=== PATIENT | female | born 1970 | race Hispanic/Latino ===

== ENCOUNTER 2019-10-09 06:58 | Day surgery (SDC) | payer BC ==
[~2019-10-09 06:58] MED LIST: BUDE10.22 IH; FLUT1AER IH; HYOS-27 SL; LINA145C PO; LOSA25TA41 PO; MAG OX PO; MILK175T PO; MONT10TA24 PO; OMEGA 3; OMEP40CA13 PO; SODIUM CHLORIDE 0.9% 1000ML 1,000 ML IV ONE; VITAMIN D2
[2019-10-09 08:50] VITALS: BP 120/75
[2019-10-09 09:01] LABS: BASOPHILS % (AUTO) 0.4 % (0.0-5.0); EOSINOPHILS % (AUTO) 2.7 % (0.0-8.0); HEMATOCRIT 42.2 % (36-48); LYMPHOCYTES % (AUTO) 26.6 % (21.0-51.0); MEAN CORPUSCULAR HEMOGLOBIN 29.2 pg (27.0-33.0); MEAN CORPUSCULAR HGB CONC 33.2 g/dL (32.0-36.0); MEAN CORPUSCULAR VOLUME 87.9 fL (79-99); MONOCYTES % (AUTO) 6.3 % (3.0-13.0); NEUTROPHILS % (AUTO) 63.8 % (40.0-77.0); PLATELET COUNT (AUTO) 192 K/uL (130-400); WHITE BLOOD COUNT (AUTO) 4.9 K/uL (4.8-10.8)
[2019-10-09 09:14] LABS: PROTHROMBIN TIME 10.5 SEC (9.6-11.6)
[2019-10-09] MEDS ORDERED: PROPOFOL 10 MG/ML 20ML VIAL IV ONE ×2 (10:35→10:50)
[2019-10-09 10:56] VITALS: BP 97/59
[2019-10-09 11:01] VITALS: BP 94/45
[2019-10-09 11:06] VITALS: BP 91/52
[2019-10-09 11:11] VITALS: BP 112/70
[2019-10-09 11:16] VITALS: BP 117/75
== END 2019-10-09 11:30 | disposition home or self-care (01) ==
LOC: ENDO 06:58 → DAH 06:58 → ENDO 11:30
PROVIDERS: ATTEND Internal Medicine
DX: K31.7 Polyp of stomach and duodenum (principal); K31.89 Other diseases of stomach and duodenum; K21.9 Gastro-esophageal reflux disease without esophagitis; I10 Essential (primary) hypertension; J45.909 Unspecified asthma, uncomplicated; Z79.899 Other long term (current) drug therapy; Z98.890 Other specified postprocedural states; Z82.49 Family history of ischemic heart disease and other diseases of the circulatory system; Z83.3 Family history of diabetes mellitus; Z82.5 Family history of asthma and other chronic lower respiratory diseases
CPT/HCPCS: 36415; 43237; 43239; 82948; 84703; 85025; 85610; A4215; A4221; A4222; A4223; A4606; A4615; A4663; J2704 ×2; J7030

== ENCOUNTER 2021-07-11 09:32 | Day surgery (SDC) | payer BC ==
[2021-07-10] MEDS: INDOMETHACIN 50 MG SUPP.RECT RC SCH (11:10)
[2021-07-11] VITALS (16 sets, daily range): BP systolic 113–129; BP diastolic 56–80
[~2021-07-11] VITALS: Ht 165.1 cm; Wt 83.9 kg
[~2021-07-11 09:32] MED LIST changes: +0.9%NACL 1000ML 1,000 ML IV ONE; +ALBU1.252 IH; +DICY20TA11 PO; +ERGO500093 PO; +IOHEXOL-350 50ML VIAL IV ONE; -MONT10TA24 PO; +MONT10TA32 PO; +NITR0.4T50 SL; -OMEP40CA13 PO; +OMEP40CA21 PO; +SENN-295 PO; -SODIUM CHLORIDE 0.9% 1000ML 1,000 ML IV ONE; +WHEA1POW2 PO
[2021-07-11] MEDS ORDERED: PROPOFOL 1000 MG/100 ML 100 ML IV ONE (13:12)
[2021-07-11] MEDS ORDERED: SUCCINYLCHOLINE 200MG/10ML SYR ONE (13:13)
[2021-07-11] MEDS: INDOMETHACIN 50 MG SUPP.RECT RC SCH (13:38)
== END 2021-07-11 15:10 | disposition home or self-care (01) ==
LOC: DAH 09:32 → ENDO 09:32
PROVIDERS: ATTEND Internal Medicine Gastroenterology
DX: T85.520A Displacement of bile duct prosthesis, initial encounter (principal); Z20.822 Contact with and (suspected) exposure to COVID-19; J45.909 Unspecified asthma, uncomplicated; K83.8 Other specified diseases of biliary tract; K59.04 Chronic idiopathic constipation; K21.9 Gastro-esophageal reflux disease without esophagitis; I10 Essential (primary) hypertension; I25.10 Atherosclerotic heart disease of native coronary artery without angina pectoris; E11.9 Type 2 diabetes mellitus without complications; Z98.890 Other specified postprocedural states; Z90.49 Acquired absence of other specified parts of digestive tract; Z83.3 Family history of diabetes mellitus; Z80.3 Family history of malignant neoplasm of breast; Z80.0 Family history of malignant neoplasm of digestive organs; Z82.49 Family history of ischemic heart disease and other diseases of the circulatory system; X58.XXXA Exposure to other specified factors, initial encounter
CPT/HCPCS: 43264; 43275; 74328; 87635; A4215; A4221; A4222; A4223; A4606; A4657; A4663; A7002; C1769; C9803; J0330; J2704; J7030; Q9967; 74330